=== PATIENT | male | born 1990 | race Caucasian/White ===

== ENCOUNTER 2018-07-16 02:20 | Inpatient (IN) | payer OTHER ==
[~2018-07-16] VITALS: Ht 188 cm; Wt 125.3 kg
[2018-07-16] VITALS (13 sets, daily range): BP systolic 113–197; BP diastolic 50–114; PULSE 101–114; TEMP 97.3–98.8
[~2018-07-16 02:20] MED LIST: LEVAQUIN 5500 MG/TA1 PO; NO HOME MEDICATIONS
--- NOTE | 2018-07-16 02:20 | NUR ---
Patient arrived to room 356 via EMS from [place]. Now resting in bed, yellow gown on. Hypertensive, hallucinations- lights are moving stopped since arriving here. Dypsnea upon exertion. Tachycardic. Lung sounds clear. Abdomen distended, dull pain 7/10, sharp pain when ambulating. Unsteady on feet, most likely will need a gait belt if ambulating.
[2018-07-16] MEDS ORDERED: ZESTRIL40 MG PO (02:34)
[2018-07-16 04:09] LABS: BASO % 0.4 % (0.0-2.0); EOS % 0.3 % (0-4.0); GRAN # 4.8 (1.4-6.5); GRAN % 67.5 % (42.2-75.2); HEMATOCRIT 39.7 % (42.0-52.0); HEMOGLOBIN 13.5 g/dl (13.5-18.0); LYMPH # 1.6 (1.2-3.4); LYMPH % 22.2 % (20.0-51.0); MEAN CELL VOLUME 98 fl (80.0-100.0); MEAN CORPUSCULAR HEMOGLOBIN 33 pg (27.0-31.0); MEAN CORPUSCULAR HGB CONC 34 g/dl (33.0-37.0); MEAN PLATELET VOLUME 10.9 fl (7.4-10.4); MONO # 0.6 (0.1-0.6); PLATELET COUNT 131 K/mm3 (130-400); RED BLOOD COUNT 4.05 M/mm3 (4.20-5.60); REDCELL DISTRIBUTION WIDTH-CV 13.6 % (11.5-14.5)
[2018-07-16 04:21] LABS: ALBUMIN 3.4 gm/dL (3.5-5.0); BILIRUBIN,TOTAL 3.2 mg/dL (0.0-1.0); CALCIUM 8.1 mg/dL (8.4-10.2); CREATININE, serum 0.53 mg/dL (0.66-1.25); MAGNESIUM 1.4 mg/dL (1.6-2.3); POTASSIUM 3.6 mmol/L (3.4-5.0); TOTAL PROTEIN 6.9 gm/dL (6.4-8.2)
[2018-07-16 04:31] LABS: INR 1.8 (0.8-3.0); PROTHROMBIN TIME 20.3 SECONDS (9.7-12.8)
--- NOTE | 2018-07-16 04:43 | NUR ---
Patient resting in bed, new IV placed in right forearm in order to give all necessary IV medications. Patient scored 5 on ETOH protocol, 0.5 mg Ativan administered. Pain at 4/10, dull. No further needs at this time.
[2018-07-16 04:45] LABS: PARTIAL THROMBOPLASTIN TIME 34.2 SECONDS (26.0-37.0)
[2018-07-16 07:09] LABS: TRICYCLIC ANTIDEPRESS URINE NEGATIVE
--- NOTE | 2018-07-16 09:06 | NUR ---
Patient up to the bathroom with one assist. Noted slightly unsteady on feet. Voided without difficulty. Patient alert and oriented x 3. States he feels fuzzy; probably from the pain medication. C/O pain 12/03 to right upper quad. Consults called to Dr. Banegas and Dr. Madrigal. Skin hot/flushed and slightly moist. Lungs CTA with resp even/unlabored. Abd rounded/slightly rigid as patient verbalizes pain. BS x 4 quads. Patient reports he is passing gas and has recently had BM. PPP. No edema noted. IV fluids and K+ infusing without difficulty to right forearm IV. Seizure percautions in place. Bed alarm on. Call light and phone within reach. No other needs at this time.
--- NOTE | 2018-07-16 13:10 | NUR ---
SW attempted to meet with patient. Patient was asleep. SW will try back later.
--- NOTE | 2018-07-16 13:35 | NUR ---
Patient resting in bed at this time. Denies any needs. Patient's and daughter at bedside. Patient's request information regarding MD's visit this AM. With patients approval; reviewed information with patient and his . Patient states he would like information regarding inpatient ETOH treatment. machine farmworker made aware.
--- NOTE | 2018-07-16 13:54 | NUR ---
JOSE EDUARDO met with patient and patient about discharge planning. Patient lives at home with his . Patient does work timers inspector. He does not have a PCP but would like to be set up with one in either [place] or [place]. Patient does not use any [place] or home health services. JOSE EDUARDO reported that she was informed patient may be interested in alcohol treatment. Patient confirmed this and reported he is interested in both out patient and inpatient. SW provided out patient options and patient would like JOSE EDUARDO to send referral to both [facility] and [facility] and inquire about insurance coverage. JOSE EDUARDO will contact both facilities.
--- NOTE | 2018-07-16 15:00 | NUR ---
Patient continues to c/o right mid abdominal pain. Noted pain 7/10 with more so when up to bathroom. Patient given Diludid IV as per orders. Will continue to monitor and treat ETOH detox scale as per orders. No other needs at this time.
--- NOTE | 2018-07-16 15:40 | NUR ---
JOSE EDUARDO spoke with Chance at [facility] and he reports if patient would like to recieve treatment they are able to accept him. JOSE EDUARDO informed patient's .
--- NOTE | 2018-07-16 17:09 | NUR ---
Patient allowed to ambulate safely in hallway. Re-eval of fall risk completed. Patient denies being dizzy. Steay on feet and able to get up with one attempt. Explained to patient that he must stay in within eye sight of the nurses station
--- NOTE | 2018-07-16 20:30 | NUR ---
patient woken up to take evening medications. Somewhat difficult to wake up. Now awake slightly confused, after about 5 minutes was reoriented to situation and remembered coming to the hopsital. Ambulated with SBA to restroom. Returned to bed. Given evening medications. No further needs at this time.
[2018-07-17] VITALS (10 sets, daily range): BP systolic 101–160; BP diastolic 51–103; PULSE 07–122; TEMP 97.3–98.5
--- NOTE | 2018-07-17 05:04 | NUR ---
Somewhat agitated the morning. at bedside. Talked with patient and had him return to bed. Given 1 mg Ativan per ETOH protocol.
--- NOTE | 2018-07-17 05:08 | NUR ---
Patient slept on/off last night. Agitated when waking, confused at first- it takes a few minutes for patient to reorient himself to the hospital. Scoring 4-6's last night, getting 0.5-1 mg of Ativan q2h. Slightly unsteady on feet. Bed alarm on, call light in reach, at bedside.
[2018-07-17 07:32] LABS: BASO % 0.4 % (0.0-2.0); EOS % 0.6 % (0-4.0); GRAN # 4.8 (1.4-6.5); GRAN % 70.5 % (42.2-75.2); HEMATOCRIT 41.5 % (42.0-52.0); HEMOGLOBIN 13.9 g/dl (13.5-18.0); LYMPH # 1.4 (1.2-3.4); LYMPH % 20.5 % (20.0-51.0); MEAN CELL VOLUME 100 fl (80.0-100.0); MEAN CORPUSCULAR HEMOGLOBIN 33 pg (27.0-31.0); MEAN CORPUSCULAR HGB CONC 34 g/dl (33.0-37.0); MEAN PLATELET VOLUME 11.5 fl (7.4-10.4); MONO # 0.5 (0.1-0.6); MONO % 7.6 % (1.7-9.3); PLATELET COUNT 128 K/mm3 (130-400); RED BLOOD COUNT 4.16 M/mm3 (4.20-5.60)
[2018-07-17 07:42] LABS: ALBUMIN 3.7 gm/dL (3.5-5.0); BILIRUBIN,TOTAL 3.8 mg/dL (0.0-1.0); CALCIUM 8.6 mg/dL (8.4-10.2); CREATININE, serum 0.76 mg/dL (0.66-1.25); MAGNESIUM 2.2 mg/dL (1.6-2.3); POTASSIUM 3.8 mmol/L (3.4-5.0); TOTAL PROTEIN 7.7 gm/dL (6.4-8.2)
--- NOTE | 2018-07-17 07:50 | NUR ---
Patient is resting in bed with eyes closed. is at bedside. Patient is noted to be covered with a sheet and fan is blowing over him. Shows no signs of discomfort. Call light is within reach.
--- NOTE | 2018-07-17 13:54 | NUR ---
[facility] nurse was assisted with [id number] patient care by [employer] student Yola Slaughter and [facility] instructor Lizet Rao RN-.
--- NOTE | 2018-07-17 16:09 | NUR ---
Patient's alcohol detox socring is at 4. Declines medication at this time, states he is feeling "out of it." His mother and himself feel like he is slurring his words and having slight difficulty with motor skills. Would like to try to go without being medicated for now.
--- NOTE | 2018-07-17 20:30 | NUR ---
Initial shift assessment done- pt calm tonight- denies being anxious, no tremors noted- family with patient, did eat some food that was brought in by the family,, IV fluids of NS at 75cc/hr, states has some pain to right side abdomen
[2018-07-18] VITALS (11 sets, daily range): BP systolic 141–174; BP diastolic 97–116; PULSE 86–114; TEMP 97.7–98.5
--- NOTE | 2018-07-18 05:20 | NUR ---
Quiet night-- up to bathroom with assist,, has not scored higher than 3 per detox protocol. Was given DIlaudid once for right sided abd pain 5/10
[2018-07-18 07:33] LABS: BASO % 0.4 % (0.0-2.0); EOS # 0.1 (0.0-0.7); EOS % 1.2 % (0-4.0); GRAN # 4.4 (1.4-6.5); GRAN % 63.3 % (42.2-75.2); HEMATOCRIT 41.3 % (42.0-52.0); HEMOGLOBIN 13.6 g/dl (13.5-18.0); LYMPH # 1.8 (1.2-3.4); MEAN CELL VOLUME 102 fl (80.0-100.0); MEAN CORPUSCULAR HEMOGLOBIN 33 pg (27.0-31.0); MEAN CORPUSCULAR HGB CONC 33 g/dl (33.0-37.0); MEAN PLATELET VOLUME 11.1 fl (7.4-10.4); MONO # 0.6 (0.1-0.6); MONO % 8.8 % (1.7-9.3); PLATELET COUNT 138 K/mm3 (130-400); RED BLOOD COUNT 4.07 M/mm3 (4.20-5.60); REDCELL DISTRIBUTION WIDTH-CV 14.3 % (11.5-14.5)
[2018-07-18 07:37] LABS: INR 1.6 (0.8-3.0); PROTHROMBIN TIME 17.7 SECONDS (9.7-12.8)
[2018-07-18 07:50] LABS: ALBUMIN 3.4 gm/dL (3.5-5.0); BILIRUBIN,TOTAL 2.2 mg/dL (0.0-1.0); CALCIUM 8.7 mg/dL (8.4-10.2); CREATININE, serum 0.7 mg/dL (0.66-1.25); PHOSPHOROUS 4.1 mg/dL (2.5-4.5); POTASSIUM 3.6 mmol/L (3.4-5.0); TOTAL PROTEIN 7.1 gm/dL (6.4-8.2)
--- NOTE | 2018-07-18 09:33 | NUR ---
SW met with patient after clinical rounds. SW inquired if patient is still interested in Inpatient Alochol Treatment at [facility] in [place], [place]. Patient reports he is but he would like to speak with his this afternoon when she visits. SW will follow up when patient's is here.
--- NOTE | 2018-07-18 13:19 | NUR ---
Patient is resting in bed. Detox scoring has remained under 3. Patient remains calm and no tremors are present. Right FA INT site remians patent, no infiltration or phlebitis noted. Pain rate @ 5/10 with movement. Call light within reach. Patients voices no complaints at this time.
--- NOTE | 2018-07-18 13:36 | NUR ---
Primary nurse was assisted with [id number] patient care by [employer] AD[employer] student Katie Slaughter and [facility] instructor Lizet Rao RN-.
--- NOTE | 2018-07-18 15:31 | NUR ---
DANNY met with patient and his mother. Patient has not been able to speak with his about inpatient treatment. He reports his will be here after she leaves work this evening. Danny reports she can leave a note for the weekend SW to follow up with him tomorrow morning.
--- NOTE | 2018-07-18 19:14 | NUR ---
Shift report given to oncoming nurse. Patient observed sitting up in recliner reading. Telemetry leads loose and replaced. Offers no complaints. Call light is within reach.
--- NOTE | 2018-07-18 21:09 | NUR ---
Sitting in recliner, family in room, pleasant and talkative, shift assessments complete.
[2018-07-19 00:44] VITALS: BP 155/105; PULSE 105; TEMP 98.4
[2018-07-19 04:15] VITALS: BP 158/102; PULSE 112
--- NOTE | 2018-07-19 06:07 | NUR ---
Pt slept on and off during the night, he is scoring low on the DETOX protocol, no signs of aggitation or trembling, VS have been stable except he has maintained a higher than normal BP.
[2018-07-19 07:21] LABS: BASO % 0.4 % (0.0-2.0); EOS # 0.1 (0.0-0.7); EOS % 1.4 % (0-4.0); GRAN # 5.2 (1.4-6.5); HEMATOCRIT 42.9 % (42.0-52.0); HEMOGLOBIN 14.1 g/dl (13.5-18.0); LYMPH # 2.2 (1.2-3.4); LYMPH % 25.6 % (20.0-51.0); MEAN CELL VOLUME 101 fl (80.0-100.0); MEAN CORPUSCULAR HEMOGLOBIN 33 pg (27.0-31.0); MEAN CORPUSCULAR HGB CONC 33 g/dl (33.0-37.0); MEAN PLATELET VOLUME 10.9 fl (7.4-10.4); MONO # 0.9 (0.1-0.6); MONO % 10.9 % (1.7-9.3); PLATELET COUNT 164 K/mm3 (130-400); RED BLOOD COUNT 4.24 M/mm3 (4.20-5.60); REDCELL DISTRIBUTION WIDTH-CV 14.6 % (11.5-14.5)
[2018-07-19 07:26] LABS: INR 1.5 (0.8-3.0); PROTHROMBIN TIME 16.6 SECONDS (9.7-12.8)
[2018-07-19 07:32] LABS: ALBUMIN 3.5 gm/dL (3.5-5.0); BILIRUBIN,TOTAL 1.8 mg/dL (0.0-1.0); CALCIUM 8.7 mg/dL (8.4-10.2); CREATININE, serum 0.85 mg/dL (0.66-1.25); MAGNESIUM 1.8 mg/dL (1.6-2.3); PHOSPHOROUS 4.8 mg/dL (2.5-4.5); POTASSIUM 3.1 mmol/L (3.4-5.0); TOTAL PROTEIN 7.1 gm/dL (6.4-8.2)
[2018-07-19 07:39] VITALS: BP 176/107; PULSE 102; TEMP 98.9
--- NOTE | 2018-07-19 08:20 | NUR ---
Pt assessment complete. Pt is laying in bed awake, he is A/O x3. His breathing is even and unlabored on RA. Pt denies SOB. Intermittent pain to RUQ, denies N/V. No N/T. POC discussed with patient who verbalizes understanding. Denies further needs, call light within reach.
[2018-07-19 10:10] VITALS: BP 161/97; PULSE 107; TEMP 98.7
[2018-07-19] MEDS ORDERED: TOPROL XL 25MG25 MG PO (11:06)
[2018-07-19] MEDS ORDERED: NORVASC 5MG5 MG/TAB PO (11:07)
[2018-07-19] MEDS ORDERED: REMERON 15M15 MG/TA1 PO (11:07)
[2018-07-19] MEDS ORDERED: ZESTRIL40 MG PO (11:07)
[2018-07-19] MEDS ORDERED: FOLIC ACID 11 MG/TA1 PO (11:09)
[2018-07-19] MEDS ORDERED: DUO-KAPS1 CAP PO (11:10)
[2018-07-19] MEDS ORDERED: THIAMINE 1100 MG/TAB PO (11:10)
[2018-07-19] MEDS ORDERED: ORAPRED ODT10 MG PO (11:15)
[2018-07-19] MEDS ORDERED: ADVOCATE BLOOD1 EAC1 MC (11:26)
--- NOTE | 2018-07-19 11:43 | NUR ---
JOSE EDUARDO met with the patient and he opt for outpatient alcohol treatment. JOSE EDUARDO provided the patient with a list of local outpatient services for treatment. The patient is to discharge today, 07/19. There are no additional needs at this time.
--- NOTE | 2018-07-19 11:59 | NUR ---
Discharge paperwork and instructions reviewed with patient. All questions answered at this time. IV to LAC dc'd, catheter tip intact. Sharon Social work in to speak with family about treatment options.
--- NOTE | 2018-07-19 12:08 | NUR ---
Pt walked out of facility at this time.
== END 2018-07-19 12:10 | disposition home or self-care (01) | DRG 433 ==
LOC: MEDICAL 02:20
PROVIDERS: Nurse Practitioner Family; Physician Assistant; ADMIT Hospitalist
DX: K70.10 Alcoholic hepatitis without ascites (principal); E87.2 Acidosis; F10.239 Alcohol dependence with withdrawal, unspecified; K76.0 Fatty (change of) liver, not elsewhere classified; K70.9 Alcoholic liver disease, unspecified; E86.0 Dehydration; E87.6 Hypokalemia; E83.42 Hypomagnesemia; I10 Essential (primary) hypertension; F41.9 Anxiety disorder, unspecified; R00.0 Tachycardia, unspecified
CPT/HCPCS: 99222-AI; 99231-AI; 99232-AI; 99239; A4216; J0696; J1170; J1644; J2060; J2543; J3411; J3475; J3480; J7030; J7510

== ENCOUNTER → 2018-07-29 | Outpatient (REF) ==
[~2018-07-29] MED LIST changes: +ADVOCATE BLOOD1 EAC1 MC; +DUO-KAPS1 CAP PO; +FOLIC ACID 11 MG/TA1 PO; +NORVASC 5MG5 MG/TAB PO; +ORAPRED ODT10 MG PO; +REMERON 15M15 MG/TA1 PO; +THIAMINE 1100 MG/TAB PO; +TOPROL XL 25MG25 MG PO; +ZESTRIL40 MG PO
[2018-07-29 17:15] LABS: IRON,SERUM 132 ug/dL (35-150)
[2018-07-29 17:24] LABS: TOTAL IRON BINDING CAPACITY 298 ug/dL (261-462)
[2018-07-29 17:52] LABS: FERRITIN 780 ng/mL (18-464)
== END ==
LOC: ZLAB.WCH 16:19
PROVIDERS: Physician Assistant
DX: Z01.89 Encounter for other specified special examinations (principal)